=== PATIENT | female | born 1935 | race Caucasian/White ===

== ENCOUNTER 2016-05-17 17:27 | Inpatient (IN) ==
--- NOTE | 2016-05-17 17:35 | Emergency Department Note ---
Disposition Clinical Impression: Pneumonia Disposition: Admitted As Inpatient Condition: Fair Referrals: Henri Thomas MD [Primary Care Provider] - Forms: Work/School Release, ED Satisfaction Letter Time of Disposition: 19:40 (guera obsv) Altered Mental Status HPI - General Chief Complaint: ED General Medical Stated Complaint: poor intake, nausea Time Seen by Provider: 05/17/16 17:45 Source: patient Mode of arrival: ambulatory Limitations: no limitations Nursing Notes Reviewed: Yes Vital Signs Reviewed: Yes - History of Present Illness HPI Narrative: H and sent in from the group home with an alteration of her mental status apparently lab work was done after she was started on doxycycline yesterday showing she has had a sodium of 132 patient's eyes are closed well on the bed patient is on tactile stimulation but very slow to answer questions recent surgery on 04 27 16 unable to elicit is otherwise at this time except for decreased mental status complaint: altered mental status Onset (ago): Just [employer] Timing confirmed by: caregiver Pain Severity: none Consistency of Symptoms: waxing and waning, getting worse Context: unknown Associated symptoms: Reports: denies other symptoms (Per caregivers with history being noted to also include alteration of mental status only complaint) . Denies: chest pain, cough, diaphoresis, fever, chills, headaches, loss of appetite, malaise, nausea/vomiting, rash, seizure, shortness of breath, syncope , weakness, foul smelling urine, difficulty walking, diarrhea, incontinence Treatments prior to arrival: other (blood work) - Related Data Home Medications Medication Instructions Recorded Confirmed Amiodarone [Cordarone] 200 mg PO BID 12/09/14 05/17/16 Atorvastatin [Lipitor] 40 mg PO HS 12/09/14 05/17/16 Duloxetine HCl [Cymbalta] 60 mg PO DAILY 12/09/14 05/17/16 Pantoprazole Sodium [Protonix] 40 mg PO DAILY 12/09/14 05/17/16 Amlodipine [Norvasc] 2.5 mg PO DAILY 01/16/15 05/17/16 Apixaban [Eliquis] 5 mg PO BID 01/16/15 05/17/16 Ascorbic Acid [Vitamin C] 500 mg PO BID 01/16/15 05/17/16 Aspirin 81 mg PO DAILY 01/16/15 05/17/16 Celecoxib [Celebrex] 200 mg PO DAILY 01/16/15 05/17/16 Cetirizine HCl [Zyrtec] 10 mg PO DAILY 01/16/15 05/17/16 Cholecalciferol (Vitamin D3) 5,000 unit PO DAILY 01/16/15 05/17/16 [Vitamin D3] Cyanocobalamin (Vitamin B-12) 1,000 mg PO DAILY 01/16/15 05/17/16 [Vitamin B12] Diltiazem CD (24hr) [Cardizem CD] 360 mg PO DAILY 01/16/15 05/17/16 Docusate [Colace] 100 mg PO DAILY 01/16/15 05/17/16 Ferrous Sulfate 325 mg PO DAILY 01/16/15 05/17/16 Furosemide [Lasix] 20 mg PO DAILY 01/16/15 05/17/16 Losartan [Cozaar] 50 mg PO BID 01/16/15 05/17/16 Oxybutynin [Ditropan] 5 mg PO DAILY 01/16/15 05/17/16 Potassium Chloride 20 meq PO DAILY 01/16/15 05/17/16 Levothyroxine [Synthroid] 50 mcg PO DAILY 04/25/16 05/17/16 Diazepam [Valium] 2 mg PO BID 04/26/16 05/17/16 Metoprolol XL (24 HR) Succ [Toprol 100 mg PO DAILY 04/26/16 05/17/16 Xl] Doxycycline 100 mg PO BID 05/17/16 05/17/16 Previous Rx's Medication Instructions Recorded Ondansetron ODT [Zofran ODT] 4 mg SL Q6HR PRN #15 tab.rapdis 04/29/16 Allergies Allergy/AdvReac Type Severity Reaction Status Date / Time ciprofloxacin [From Cipro] Allergy Intermediate Hives Verified 11/20/15 07:35 Sulfa (Sulfonamide Allergy Intermediate Hives Verified 11/20/15 07:35 Antibiotics) amlodipine Allergy Rash Verified 11/26/15 09:04 benazepril Allergy See Verified 11/20/15 07:35 Comments trimethoprim Allergy Rash Verified 11/20/15 07:35 Limitations: ROS unobtainable due to patients medical condition Past Medical History - Past Medical History Attestation: Yes The following information was validated with the patient. Source: patient, old records reviewed, nursing notes reviewed Medical history: Reports: arthritis, atrial fibrillation, COPD, coronary artery disease, DVT, diabetes, hyperlipidemia, hypertension, migraine, myocardial infarction, thyroid disease Surgical history: Reports: angioplasty/stent, appendectomy, cataract, coronary bypass (CABG), hysterectomy, orthopedic, other (spine surgery with instrumentation), pacemaker/AICD, other Psychiatric history: Reports: anxiety, depression STONE SETTER history: Reports: no STONE SETTER history - Social History Smoking Status: Former smoker Smokeless Tobacco Status: No Alcohol use: Reports: none Drug use: Reports: none Physical Exam - General Limitations: altered mental status, age General appearance: in no apparent distress, lethargic - Head Head exam: atraumatic, normocephalic, normal inspection - Eye Eye exam: Present: normal appearance, PERRL, EOMI - ENT ENT exam: normal exam, normal oropharynx, mucous membranes moist, normal external ear exam - Neck Neck exam: Present: normal inspection, full ROM, trachea midline - Chest Chest inspection: Present: normal inspection, symmetric chest wall rise - Respiratory Respiratory exam: Present: wheezes, prolonged expiratory phase, other (crackles) - Cardiovascular Cardiovascular exam: Present: regular rate, normal rhythm, normal heart sounds - Abdominal Exam Abdominal exam: Present: soft, Non-Tender, normal bowel sounds. Absent: mass, pulsatile mass - Extremities Exam Extremities exam: Present: normal inspection, normal capillary refill. Absent: pedal edema - Expanded Upper Extremity Exam Shoulder exam: Present: normal inspection Arm exam: Present: normal inspection Elbow exam: Present: normal inspection Forearm/Wrist exam: Present: normal inspection Hand exam: Present: normal inspection Neurosensory exam: Normal: radial nerve, ulnar nerve, median nerve Vascular exam: Normal: capillary refill, radial pulse, ulnar pulse - Expanded Lower Extremity Exam Hip/Pelvis exam: Present: normal inspection Upper leg exam: Present: normal inspection Knee exam: Present: normal inspection Lower leg exam: Present: normal inspection Ankle exam: Present: normal inspection Foot/toe exam: Present: normal inspection Neurovascular/Tendon exam: Present: normal capillary refill, normal fine/light touch Gait: not tested/not observed - Back Exam Back exam: Present: normal inspection - Neurological Exam Neurological exam: Present: other (lethargic) - Psychiatric Psychiatric exam: Present: flat affect - Skin Skin exam: Present: warm, dry, intact, normal color Course Course Narrative: immediately seen and examined laboratory data obtained awaiting results at this time - Reevaluation(s) Reevaluation #1: Spoke with family about test results and as a result patient will be started on anabolic seen in emergency room I have advised him though that this time her condition is fair to guarded because of her recent hip surgery and her being minimally active and this does increase her risk for having complications postsurgery they appear to be understanding of this admitted spoke with Dr. Nunez agrees Vital Signs Temperature 99 F 05/17/16 17:32 Pulse Rate 72 05/17/16 17:32 Respiratory Rate 22 05/17/16 17:32 Blood Pressure 144/69 05/17/16 17:32 O2 Sat by Pulse Oximetry 97 05/17/16 17:32 Temperature 99 F 05/17/16 19:01 Pulse Rate 60 05/17/16 19:01 Respiratory Rate 22 05/17/16 19:01 Blood Pressure 133/64 05/17/16 19:01 O2 Sat by Pulse Oximetry 94 L 05/17/16 19:01 Oxygen Delivery Oxygen Delivery Non Rebreather Mask Altered Mental Status - Differential Diagnosis Likely: altered mental status, delirium, dementia, hypoglycemia, hyponatremia - Medical Records Medical records reviewed: Yes I reviewed the patient's medical records. - Lab Data Lab results reviewed: Yes I reviewed the patient's lab results. Result diagrams: 05/17/16 17:50 05/17/16 17:50 Lab Results 05/17/16 05/17/16 05/17/16 Range/Units 17:50 17:50 17:50 WBC 10.4 (4.3-11.1) K/mcL RBC 3.43 L (3.82-4.97) M/mcL Hgb 10.7 L (11.5-15.4) g/dL Hct 32.7 L (35.3-44.9) % MCV 95.3 (83.0-100.0) fL MCH 31.2 (28.0-33.3) pg MCHC 32.7 (31.6-35.5) g/dL RDW 16.5 H (11.5-14.5) % Plt Count 256 (140-400) K/mcL MPV 10.6 (9.4-12.4) fL Immature Gran % 1.2 (0-4) % Seg Neutrophils % 85.7 % Lymphocytes % 8.4 % Monocytes % 4.1 % Eosinophils % 0.3 % Basophils % 0.3 % Neutrophils # 8.9 (1.6-8.9) K/mcL Lymphocytes # 0.9 (0.6-4.6) K/mcL Monocytes # 0.4 (0.0-1.3) K/mcL Eosinophils # 0.0 (0.0-0.6) K/mcL Basophils # 0.0 (0.0-0.2) K/mcL PT 18.0 H (9.4-12.1) Seconds INR 1.6 APTT 31.8 (26.0-36.0) Seconds VBG Lactic Acid (0.5-2.2) mmol/L Sodium 135 L (136-145) mEq/L Potassium 4.5 (3.5-4.5) mEq/L Chloride 102 (98-109) mEq/L Carbon Dioxide 24 (19-29) mEq/L BUN 23 H D (7-20) mg/dL Creatinine 0.67 (0.57-1.11) mg/dL Est GFR ( Amer) > 60 (> 60) Est GFR (Non-Af Amer) > 60 (> 60) BUN/Creatinine Ratio 34 H (6-26) Glucose 103 H (70-99) mg/dL Calculated Osmolality 284 (280-300) Calcium 8.3 L (8.6-10.8) mg/dL Total Bilirubin 1.2 (0.2-1.2) mg/dL AST 147 H (5-34) Units/L ALT 130 H (0-55) Units/L Alkaline Phosphatase 133 H (38-126) Units/L Troponin I (0-0.03) ng/mL B-Natriuretic Peptide (0-100) pg/mL Serum Total Protein 5.4 L (6.0-8.3) g/dL Albumin 2.4 L (3.5-5.0) g/dL Globulin 3.0 (2.4-3.5) g/dL Albumin/Globulin Ratio 0.8 L (1.1-2.2) TSH (0.350-4.840) mcIU/mL Salicylates < 5.0 L (15-30) mg/dL 05/17/16 05/17/16 05/17/16 Range/Units 17:50 17:50 17:50 WBC (4.3-11.1) K/mcL RBC (3.82-4.97) M/mcL Hgb (11.5-15.4) g/dL Hct (35.3-44.9) % MCV (83.0-100.0) fL MCH (28.0-33.3) pg MCHC (31.6-35.5) g/dL RDW (11.5-14.5) % Plt Count (140-400) K/mcL MPV (9.4-12.4) fL Immature Gran % (0-4) % Seg Neutrophils % % Lymphocytes % % Monocytes % % Eosinophils % % Basophils % % Neutrophils # (1.6-8.9) K/mcL Lymphocytes # (0.6-4.6) K/mcL Monocytes # (0.0-1.3) K/mcL Eosinophils # (0.0-0.6) K/mcL Basophils # (0.0-0.2) K/mcL PT (9.4-12.1) Seconds INR APTT (26.0-36.0) Seconds VBG Lactic Acid 1.0 (0.5-2.2) mmol/L Sodium (136-145) mEq/L Potassium (3.5-4.5) mEq/L Chloride (98-109) mEq/L Carbon Dioxide (19-29) mEq/L BUN (7-20) mg/dL Creatinine (0.57-1.11) mg/dL Est GFR ( Amer) (> 60) Est GFR (Non-Af Amer) (> 60) BUN/Creatinine Ratio (6-26) Glucose (70-99) mg/dL Calculated Osmolality (280-300) Calcium (8.6-10.8) mg/dL Total Bilirubin (0.2-1.2) mg/dL AST (5-34) Units/L ALT (0-55) Units/L Alkaline Phosphatase (38-126) Units/L Troponin I 0.03 (0-0.03) ng/mL B-Natriuretic Peptide 185 H (0-100) pg/mL Serum Total Protein (6.0-8.3) g/dL Albumin (3.5-5.0) g/dL Globulin (2.4-3.5) g/dL Albumin/Globulin Ratio (1.1-2.2) TSH (0.350-4.840) mcIU/mL Salicylates (15-30) mg/dL 05/17/16 Range/Units 17:50 WBC (4.3-11.1) K/mcL RBC (3.82-4.97) M/mcL Hgb (11.5-15.4) g/dL Hct (35.3-44.9) % MCV (83.0-100.0) fL MCH (28.0-33.3) pg MCHC (31.6-35.5) g/dL RDW (11.5-14.5) % Plt Count (140-400) K/mcL MPV (9.4-12.4) fL Immature Gran % (0-4) % Seg Neutrophils % % Lymphocytes % % Monocytes % % Eosinophils % % Basophils % % Neutrophils # (1.6-8.9) K/mcL Lymphocytes # (0.6-4.6) K/mcL Monocytes # (0.0-1.3) K/mcL Eosinophils # (0.0-0.6) K/mcL Basophils # (0.0-0.2) K/mcL PT (9.4-12.1) Seconds INR APTT (26.0-36.0) Seconds VBG Lactic Acid (0.5-2.2) mmol/L Sodium (136-145) mEq/L Potassium (3.5-4.5) mEq/L Chloride (98-109) mEq/L Carbon Dioxide (19-29) mEq/L BUN (7-20) mg/dL Creatinine (0.57-1.11) mg/dL Est GFR ( Amer) (> 60) Est GFR (Non-Af Amer) (> 60) BUN/Creatinine Ratio (6-26) Glucose (70-99) mg/dL Calculated Osmolality (280-300) Calcium (8.6-10.8) mg/dL Total Bilirubin (0.2-1.2) mg/dL AST (5-34) Units/L ALT (0-55) Units/L Alkaline Phosphatase (38-126) Units/L Troponin I (0-0.03) ng/mL B-Natriuretic Peptide (0-100) pg/mL Serum Total Protein (6.0-8.3) g/dL Albumin (3.5-5.0) g/dL Globulin (2.4-3.5) g/dL Albumin/Globulin Ratio (1.1-2.2) TSH 2.595 (0.350-4.840) mcIU/mL Salicylates (15-30) mg/dL - Radiology Data Radiology results reviewed: Yes I reviewed the patient's radiology results. - EKG Data EKG attestation: Yes I reviewed and interpreted this EKG. EKG results narrative: Rhythm Paced Heart Rate 69 [place] 141 QRS 201 QT 502 Axes -57 TPA Checklist - LKW: 3-4.5 hrs Add. Contraindications Patient/family understanding: The patient/family members have been counseled and understood the risk, benefit , and alternatives of treatment. Critical Care Time Critical Care Time: No
[2016-05-17 18:04] LABS: Basophils % 0.3 %; Eosinophils % 0.3 %; Hematocrit 32.7 % (35.3-44.9); Hemoglobin 10.7 g/dL (11.5-15.4); Immature Granulocytes % 1.2 % (0-4); Lymphocytes # 0.9 K/mcL (0.6-4.6); Lymphocytes % 8.4 %; Mean Corpuscular HGB Conc 32.7 g/dL (31.6-35.5); Mean Corpuscular Hemoglobin 31.2 pg (28.0-33.3); Mean Corpuscular Volume 95.3 fL (83.0-100.0); Mean Platelet Volume 10.6 fL (9.4-12.4); Monocytes # 0.4 K/mcL (0.0-1.3); Monocytes % 4.1 %; Neutrophils # 8.9 K/mcL (1.6-8.9); Platelet Count 256 K/mcL (140-400); Red Blood Count 3.43 M/mcL (3.82-4.97); Red Cell Distribution Width 16.5 % (11.5-14.5); Segmented Neutrophils % 85.7 %
[2016-05-17 18:09] LABS: INR 1.6
[2016-05-17 18:20] LABS: Activated Partial Thrombo Time 31.8 Seconds (26.0-36.0); Alanine Aminotransferase 130 Units/L (0-55); Albumin 2.4 g/dL (3.5-5.0); Albumin/Globulin Ratio 0.8 (1.1-2.2); Alkaline Phosphatase 133 Units/L (38-126); Aspartate Amino Transferase 147 Units/L (5-34); BUN/Creatinine Ratio 34 (6-26); Blood Urea Nitrogen 23 mg/dL (7-20); Calcium 8.3 mg/dL (8.6-10.8); Carbon Dioxide 24 mEq/L (19-29); Chloride 102 mEq/L (98-109); Glucose 103 mg/dL (70-99); Osmolality,Calculated 284 (280-300); Potassium 4.5 mEq/L (3.5-4.5); Sodium 135 mEq/L (136-145); Total Protein 5.4 g/dL (6.0-8.3); eGFR For African Americans > 60 (> 60); eGFR For Non-African Americans > 60 (> 60)
[2016-05-17 18:21] LABS: Salicylate < 5.0 mg/dL (15-30)
[2016-05-17 18:22] LABS: Bilirubin,Total 1.2 mg/dL (0.2-1.2)
[2016-05-17] MEDS ORDERED: CefTRIAXone 1,000 MG in D5% in Water (Mini-Bag+) 100 ML IVPB ONE (19:28)
[2016-05-17] MEDS ORDERED: 0.9 % Sodium Chloride 1,000 ML IVC SCH (19:30)
[2016-05-17] MEDS ORDERED: Ondansetron ODT 4 MG TAB.RAPDIS SL PRN (21:17)
[2016-05-17] MEDS ORDERED: Naloxone 0.4 MG/ML INJ IVP PRN (21:17)
[2016-05-17] MEDS: 0.9 % Sodium Chloride 1,000 ML IVC SCH (21:40)
[2016-05-17] MEDS: CefTRIAXone 1,000 MG in D5% in Water (Mini-Bag+) 100 ML IVPB SCH (21:44)
[2016-05-17] MEDS: Azithromycin 500 MG in D5% in Water 250 ML IVPB SCH (23:10)
[2016-05-17] MEDS: *HR* Amiodarone 200 MG TABLET PO SCH (23:14)
[2016-05-17] MEDS: Ascorbic Acid 500 MG TABLET PO SCH (23:14)
[2016-05-17] MEDS: APIXABAN 5 MG TABLET PO SCH (23:17)
[2016-05-18 08:33] LABS: Basophils % 0.1 %; Eosinophils # 0.1 K/mcL (0.0-0.6); Eosinophils % 0.5 %; Hematocrit 30.7 % (35.3-44.9); Hemoglobin 10.1 g/dL (11.5-15.4); Immature Granulocytes % 0.7 % (0-4); Lymphocytes # 0.9 K/mcL (0.6-4.6); Lymphocytes % 8.4 %; Mean Corpuscular HGB Conc 32.9 g/dL (31.6-35.5); Mean Corpuscular Hemoglobin 31.5 pg (28.0-33.3); Mean Corpuscular Volume 95.6 fL (83.0-100.0); Mean Platelet Volume 10.4 fL (9.4-12.4); Monocytes # 0.5 K/mcL (0.0-1.3); Monocytes % 4.3 %; Neutrophils # 9.6 K/mcL (1.6-8.9); Platelet Count 226 K/mcL (140-400); Red Blood Count 3.21 M/mcL (3.82-4.97); Red Cell Distribution Width 16.5 % (11.5-14.5)
[2016-05-18 08:46] LABS: BUN/Creatinine Ratio 38 (6-26); Blood Urea Nitrogen 23 mg/dL (7-20); Calcium 7.9 mg/dL (8.6-10.8); Carbon Dioxide 24 mEq/L (19-29); Chloride 103 mEq/L (98-109); Glucose 84 mg/dL (70-99); Osmolality,Calculated 285 (280-300); Potassium 4.1 mEq/L (3.5-4.5); Sodium 136 mEq/L (136-145); eGFR For African Americans > 60 (> 60); eGFR For Non-African Americans > 60 (> 60)
[2016-05-18] MEDS ORDERED: Furosemide 20 MG TABLET PO SCH (09:00)
[2016-05-18] MEDS ORDERED: Celecoxib 200 MG CAPSULE PO SCH (09:00)
[2016-05-18] MEDS ORDERED: Loratadine 10 MG TABLET PO SCH (09:00)
[2016-05-18] MEDS ORDERED: Cyanocobalamin (B-12) 1,000 MCG TABLET PO SCH (09:00)
[2016-05-18] MEDS: Diltiazem CD (24hr) 180 MG CAPSULE PO SCH (09:58)
[2016-05-18] MEDS: Aspirin 81 MG TAB.CHEW PO SCH (09:59)
[2016-05-18] MEDS: Metoprolol XL (24 HR) Succ 50 MG TAB.ER.24H PO SCH (10:01)
[2016-05-18] MEDS: *HR* Amiodarone 200 MG TABLET PO SCH ×2 (10:02→23:08)
[2016-05-18] MEDS: APIXABAN 5 MG TABLET PO SCH ×2 (10:03→23:09)
[2016-05-18] MEDS: 0.9 % Sodium Chloride 1,000 ML IVC SCH ×2 (10:04→14:09)
--- NOTE | 2016-05-18 12:12 | Internal Med History&Physical ---
Date of Encounter: 05/18/16 Time of Encounter: 11:30 Assessment and Plan (1) Pneumonia Current visit: Yes Status: Acute She has been started on Rocephin and Zithromax. I will add lactobacillus. Qualifiers: Pneumonia type: due to unspecified organism Laterality: left Lung location: lower lobe of lung Qualified Code(s): J18.9 - Pneumonia, unspecified organism (2) Elevated LFTs Current visit: Yes Status: Acute There has been a rise since her labs in April 2016. Repeat labs as needed. (3) Anemia Current visit: Yes Status: Acute Will order anemia testing in a.m. Qualifiers: Anemia type: unspecified type Qualified Code(s): D64.9 - Anemia, unspecified (4) Afib Current visit: No Status: Chronic Continue Eliquis Qualifiers: Atrial fibrillation type: unspecified Qualified Code(s): I48.91 - Unspecified atrial fibrillation Internal Medicine - H&P: HPI Chief complaint: Confusion Admitted From: Long-term Nursing Facility Plans for Post Hospital Care: Transfer [facility] History of present illness: Ms. Henry is a 80 year old female who was sent to emergency room after the long term after staff reported she had altered mental status. Evaluation showed probable left basilar pneumonia. She was admitted to [facility] floor for ongoing care needs. She is a fair historian at best. She states she smoked from age [age] never exceeding 1 pack per day. She states she does wear oxygen at the long term. She denies known chronic lung disease. Review of available records show her most recent chest CT was 12/09/2013 and showed no evidence of malignancy. Past Med Surg Social Fam HX - Past Medical History Medical history: arthritis, atrial fibrillation, COPD, coronary artery disease, DVT, diabetes, hyperlipidemia, hypertension, migraine, myocardial infarction, thyroid disease Psychiatric history: anxiety, depression - Past Surgical History Surgical History: angioplasty/stent, appendectomy, cataract, coronary bypass ( CABG), hysterectomy, orthopedic, other, pacemaker/AICD, other - Social History Smoking Status: Former smoker Smokeless Tobacco Status: No Alcohol use: none Drug use: none - Family History Mother Living Status: Hx Family Cancer: Yes (breast) Father Living Status: Hx Family Cardiac Disorders: Yes (CHF at age 55 due to [place]) Brother Living Status: Hx Family Cardiac Disorders: Yes ( at age 39 due to [place]) Son Living Status: Hx Family Cardiac Disorders: Yes ([place]) Internal Medicine - H&P: Meds Amiodarone [Cordarone] 200 mg PO BID 12/09/14 [History] Atorvastatin [Lipitor] 40 mg PO HS 12/09/14 [History] Duloxetine HCl [Cymbalta] 60 mg PO DAILY 12/09/14 [History] Pantoprazole Sodium [Protonix] 40 mg PO DAILY 12/09/14 [History] Amlodipine [Norvasc] 2.5 mg PO DAILY 01/16/15 [History] Apixaban [Eliquis] 5 mg PO BID 01/16/15 [History] Ascorbic Acid [Vitamin C] 500 mg PO BID 01/16/15 [History] Aspirin 81 mg PO DAILY 01/16/15 [History] Celecoxib [Celebrex] 200 mg PO DAILY 01/16/15 [History] Cetirizine HCl [Zyrtec] 10 mg PO DAILY 01/16/15 [History] Cholecalciferol (Vitamin D3) [Vitamin D3] 5,000 unit PO DAILY 01/16/15 [History] Cyanocobalamin (Vitamin B-12) [Vitamin B12] 1,000 mg PO DAILY 01/16/15 [History] Diltiazem CD (24hr) [Cardizem CD] 360 mg PO DAILY 01/16/15 [History] Docusate [Colace] 100 mg PO DAILY 01/16/15 [History] Ferrous Sulfate 325 mg PO DAILY 01/16/15 [History] Furosemide [Lasix] 20 mg PO DAILY 01/16/15 [History] Losartan [Cozaar] 50 mg PO BID 01/16/15 [History] Oxybutynin [Ditropan] 5 mg PO DAILY 01/16/15 [History] Potassium Chloride 20 meq PO DAILY 01/16/15 [History] Levothyroxine [Synthroid] 50 mcg PO DAILY 04/25/16 [History] Diazepam [Valium] 2 mg PO BID 04/26/16 [History] Metoprolol XL (24 HR) Succ [Toprol Xl] 100 mg PO DAILY 04/26/16 [History] Ondansetron ODT [Zofran ODT] 4 mg SL Q6HR PRN #15 tab.rapdis 04/29/16 [Rx] Doxycycline 100 mg PO BID 05/17/16 [History] Allergies ciprofloxacin [From Cipro] Allergy (Intermediate, Verified 11/20/15 07:35) Hives Sulfa (Sulfonamide Antibiotics) Allergy (Intermediate, Verified 11/20/15 07:35) Hives benazepril Allergy (Verified 11/20/15 07:35) See Comments trimethoprim Allergy (Verified 11/20/15 07:35) Rash All Systems PM: A 10-system review of systems was performed and is negative for pertinent findings except as documented above in the HPI. Review of systems: General: Her weight has increased from 63.503 kg on 04/26/2016 to present weight of 69.989 kg. Cardiovascular: She has history of hypertension and known ASHD status post [place] x2. The dates of the heart attacks are uncertain. She has had 2 vessel CABG and reports 2 stents have been placed. She has had a pacemaker placed. She reports chronic atrial fibrillation and history of DVT. Respiratory: As per history of present illness. GI: She denies disorders of her liver gallbladder or exocrine pancreas. Medication lists reports Protonix use : She has had history of overactive bladder. She has had hysterectomy. She denies other disorders of her kidney or bladder Neurologic: CT scan emergency room showed no acute intracranial abnormality. 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 She denies seizures. Endocrine: She denies diabetes but has hyperlipidemia and hypothyroidism Hematology/oncology: She denies blood disord disorders or internal malignancies. She had anemia on emergency room blood work Psychiatric: She has a diagnosis of depression but denies other mental health issues Musk skeletal: She has DJD. She had right hip fracture repair surgery April 2016 and she has had cervical fusion in the past. She has a spinal stimulator in place for chronic low back pain. - Constitutional Vitals: Temp Pulse Resp BP Pulse Ox 98.6 F 60 28 151/71 93 L 05/18/16 11:06 05/18/16 11:06 05/18/16 11:06 05/18/16 11:06 05/18/16 11:06 Exam: Gen.: She is a well-developed well-nourished female who appears in mild respiratory distress HEENT: Head is atraumatic and normocephalic. Eyes: EOMI. There is no scleral icterus. Mouth: Mucosa is moist. Neck: Supple and nontender. There is no thyromegaly or adenopathy noted. Heart: Regular without murmurs gallops or ectopics. Lungs: She has scattered rhonchi and prolonged expiratory phase diffusely. No inspiratory crackles are heard. Chest: She has a pacemaker in the left upper chest. Abdomen: She has a well-healed lower midline abdominal scar. No masses or guarding are noted. Bowel sounds are present. Extremities: She has healing incisions in the right hip area from April 2016 surgery. She has 1-2+ edema of the dorsum of the feet and lower anterior shins bilaterally. She has DJD changes of her hands and feet. Neurologic: Mental status: She is minimally talkative and a fair historian at best. Cranial nerves: Smile is symmetric. Forehead wrinkles bilaterally. Tongue protrudes midline. EOMI. Motor: There is no pronator drift. Cerebellar : Finger to nose is marginally accurate with the right hand and not accurate with the left hand. Skin: Warm and dry. Internal Med - H&P Results - Labs CBC & Chem 7: 05/18/16 08:26 05/18/16 08:26 Labs: Short CBC 05/18/16 Range/Units 08:26 WBC 11.1 (4.3-11.1) K/mcL Hgb 10.1 L (11.5-15.4) g/dL Hct 30.7 L (35.3-44.9) % Plt Count 226 (140-400) K/mcL Neutrophils # 9.6 H (1.6-8.9) K/mcL BMP 05/18/16 08:26 Sodium 136 Potassium 4.1 Chloride 103 Carbon Dioxide 24 BUN 23 H Creatinine 0.60 Glucose 84 Calcium 7.9 L
[2016-05-18] MEDS: Ascorbic Acid 500 MG TABLET PO SCH ×2 (12:26→23:08)
[2016-05-18] MEDS: Cholecalciferol (D-3) 1,000 UNIT TABLET PO SCH (12:26)
[2016-05-18] MEDS: CefTRIAXone 1,000 MG in D5% in Water (Mini-Bag+) 100 ML IVPB SCH (23:03)
[2016-05-18] MEDS: Lactobacillus 1 EACH CAP.SPRINK PO SCH (23:09)
[2016-05-19] MEDS: Azithromycin 500 MG in D5% in Water 250 ML IVPB SCH ×2 (00:14→21:29)
[2016-05-19] MEDS: 0.9 % Sodium Chloride 1,000 ML IVC SCH (06:44)
[2016-05-19] MEDS ORDERED: Celecoxib 100 MG CAPSULE PO SCH (09:00)
--- NOTE | 2016-05-19 09:19 | Internal Med Progress Note ---
Date of Encounter: 05/19/16 Time of Encounter: 09:05 - Assessment and plan (1) Pneumonia Current Visit: Yes Status: Acute Assessment and plan: May 19. Continue Rocephin and Zithromax with lactobacillus. Qualifiers: Pneumonia type: due to unspecified organism Laterality: left Lung location: lower lobe of lung Qualified Code(s): J18.9 - Pneumonia, unspecified organism (2) Elevated LFTs Current Visit: Yes Status: Acute Assessment and plan: May 19. Will recheck labs in a.m. (3) Anemia Current Visit: Yes Status: Acute Assessment and plan: May 19. We will recheck labs in a.m. Qualifiers: Anemia type: unspecified type Qualified Code(s): D64.9 - Anemia, unspecified (4) Afib Current Visit: No Status: Chronic Assessment and plan: May 19. Continue Eliquis Qualifiers: Atrial fibrillation type: unspecified Qualified Code(s): I48.91 - Unspecified atrial fibrillation - Subjective Interval history: May 19. She has no new complaints. She is lethargic but nods her head in answer to a few questions. - Constitutional Vitals: Temp Pulse Resp BP Pulse Ox 98.4 F 66 20 144/81 91 L 05/19/16 07:11 05/19/16 07:11 05/19/16 07:11 05/19/16 07:11 05/19/16 07:11 Exam: She appears in no acute distress. Her respirations do not appear labored. I reviewed her medications and lab results. Internal Medicine: Result - Labs CBC & Chem 7: 05/18/16 08:26 05/18/16 08:26 - ABG Interpretation ABG results: PT/INR, D-dimer PT 18.0 Seconds (9.4-12.1) H 05/17/16 17:50 Consult Discharge Plan - Plan Referrals: Henri Thomas MD [Primary Care Provider] - 1 week
--- NOTE | 2016-05-19 13:36 | Electrocardiograph Report ---
[facility] Test Date: 2016-05-17 Pat Name: Nahed Henry Department: 9201 Room: [facility] Gender: F Director Of Oncology: FAHEEM : 1935 Requested By: Nela Medina Order Number: [id number] Reading MD: Yong Sanchez DO Measurements Intervals Kane Rate: 69 P: 264 OK: 141 QRS: -57 QRSD: 201 T: 85 QT: 502 QTc: 521 Interpretive Statements AV sequential pacing Electronically Signed On 05-19-16 13:35:20 EST by Yong Sanchez DO
[2016-05-19] MEDS: Aspirin 81 MG TAB.CHEW PO SCH (15:39)
[2016-05-19] MEDS: *HR* Amiodarone 200 MG TABLET PO SCH ×2 (15:40→21:32)
[2016-05-19] MEDS: Metoprolol XL (24 HR) Succ 50 MG TAB.ER.24H PO SCH (15:41)
[2016-05-19] MEDS: Furosemide 20 MG TABLET PO SCH (15:41)
[2016-05-19] MEDS: Diltiazem CD (24hr) 180 MG CAPSULE PO SCH (15:41)
[2016-05-19] MEDS: APIXABAN 5 MG TABLET PO SCH ×2 (19:24→21:32)
[2016-05-19] MEDS: Lactobacillus 1 EACH CAP.SPRINK PO SCH ×2 (19:24→21:32)
[2016-05-19] MEDS: Cholecalciferol (D-3) 1,000 UNIT TABLET PO SCH (19:25)
[2016-05-19] MEDS: Ascorbic Acid 500 MG TABLET PO SCH ×2 (19:25→21:32)
[2016-05-19] MEDS: Cyanocobalamin (B-12) 1,000 MCG TABLET PO SCH (19:25)
[2016-05-19] MEDS: CefTRIAXone 1,000 MG in D5% in Water (Mini-Bag+) 100 ML IVPB SCH (21:31)
[2016-05-20] MEDS ORDERED: Furosemide 20 MG/2 ML VIAL IVP ONE ×2 (00:18)
[2016-05-20 04:17] LABS: Basophils % 0.2 %; Eosinophils # 0.2 K/mcL (0.0-0.6); Eosinophils % 1.3 %; Hematocrit 28.1 % (35.3-44.9); Hemoglobin 9.4 g/dL (11.5-15.4); Lymphocytes # 1.3 K/mcL (0.6-4.6); Mean Corpuscular HGB Conc 33.5 g/dL (31.6-35.5); Mean Corpuscular Hemoglobin 31.4 pg (28.0-33.3); Mean Platelet Volume 10.4 fL (9.4-12.4); Monocytes % 8.8 %; Platelet Count 255 K/mcL (140-400); Red Blood Count 2.99 M/mcL (3.82-4.97); Red Cell Distribution Width 16.5 % (11.5-14.5); Segmented Neutrophils % 77.7 %
[2016-05-20 04:37] LABS: Alanine Aminotransferase 80 Units/L (0-55); Albumin 2.2 g/dL (3.5-5.0); Albumin/Globulin Ratio 0.8 (1.1-2.2); Alkaline Phosphatase 100 Units/L (38-126); Aspartate Amino Transferase 89 Units/L (5-34); BUN/Creatinine Ratio 22 (6-26); Bilirubin,Total 1.1 mg/dL (0.2-1.2); Blood Urea Nitrogen 12 mg/dL (7-20); Calcium 7.7 mg/dL (8.6-10.8); Carbon Dioxide 23 mEq/L (19-29); Chloride 104 mEq/L (98-109); Globulin 2.9 g/dL (2.4-3.5); Glucose 85 mg/dL (70-99); Osmolality,Calculated 283 (280-300); Potassium 3.5 mEq/L (3.5-4.5); Sodium 137 mEq/L (136-145); Total Protein 5.1 g/dL (6.0-8.3); eGFR For African Americans > 60 (> 60); eGFR For Non-African Americans > 60 (> 60)
[2016-05-20] MEDS: 0.9 % Sodium Chloride 1,000 ML IVC SCH (04:52)
[2016-05-20] MEDS: Cholecalciferol (D-3) 1,000 UNIT TABLET PO SCH (10:03)
[2016-05-20] MEDS: Cyanocobalamin (B-12) 1,000 MCG TABLET PO SCH (10:03)
[2016-05-20] MEDS: Furosemide 20 MG TABLET PO SCH (10:04)
[2016-05-20] MEDS: Metoprolol XL (24 HR) Succ 50 MG TAB.ER.24H PO SCH (10:04)
[2016-05-20] MEDS: *HR* Amiodarone 200 MG TABLET PO SCH ×2 (10:05→23:19)
[2016-05-20] MEDS: Lactobacillus 1 EACH CAP.SPRINK PO SCH ×2 (10:05→23:19)
[2016-05-20] MEDS: Aspirin 81 MG TAB.CHEW PO SCH (10:05)
[2016-05-20] MEDS: Diltiazem CD (24hr) 180 MG CAPSULE PO SCH (10:05)
[2016-05-20] MEDS: Ascorbic Acid 500 MG TABLET PO SCH ×2 (10:06→23:19)
[2016-05-20] MEDS: APIXABAN 5 MG TABLET PO SCH ×2 (10:07→23:19)
--- NOTE | 2016-05-20 10:14 | Internal Med Progress Note ---
Date of Encounter: 05/20/16 Time of Encounter: 10:00 - Assessment and plan (1) Pneumonia Current Visit: Yes Status: Acute Assessment and plan: May 19. Continue Rocephin and Zithromax with lactobacillus. Qualifiers: Pneumonia type: due to unspecified organism Laterality: left Lung location: lower lobe of lung Qualified Code(s): J18.9 - Pneumonia, unspecified organism (2) Elevated LFTs Current Visit: Yes Status: Acute Assessment and plan: May 19. Will recheck labs in a.m. (3) Anemia Current Visit: Yes Status: Acute Assessment and plan: May 19. We will recheck labs in a.m. May 20. Anemia testing is pending. Qualifiers: Anemia type: unspecified type Qualified Code(s): D64.9 - Anemia, unspecified (4) Afib Current Visit: No Status: Chronic Assessment and plan: May 19. Continue Eliquis Qualifiers: Atrial fibrillation type: unspecified Qualified Code(s): I48.91 - Unspecified atrial fibrillation - Subjective Interval history: May 19. She has no new complaints. She is lethargic but nods her head in answer to a few questions. May 20. She has no new complaints. She remains lethargic/obtunded. - Constitutional Vitals: Temp Pulse Resp BP Pulse Ox 98.3 F 59 32 131/55 93 L 05/20/16 07:03 05/20/16 07:03 05/20/16 07:03 05/20/16 07:03 05/20/16 07:03 Exam: She is lying in bed appears to be resting comfortably. She responds normally to voice and light touch. She has equal arm tone on passive range of motion. She does not move spontaneously. Extremities showed trace to 1+ edema of the dorsum of the feet and lower anterior shins bilaterally. Her heart is irregularly irregular. I reviewed her medications and lab results. Internal Medicine: Result - Labs CBC & Chem 7: 05/20/16 03:53 05/20/16 03:53 Labs: Short CBC 05/20/16 Range/Units 03:53 WBC 11.6 H (4.3-11.1) K/mcL Hgb 9.4 L (11.5-15.4) g/dL Hct 28.1 L (35.3-44.9) % Plt Count 255 (140-400) K/mcL Neutrophils # 9.0 H (1.6-8.9) K/mcL BMP 05/20/16 03:53 Sodium 137 Potassium 3.5 Chloride 104 Carbon Dioxide 23 BUN 12 D Creatinine 0.55 L Glucose 85 Calcium 7.7 L Liver Function 05/20/16 Range/Units 03:53 Total Bilirubin 1.1 (0.2-1.2) mg/dL AST 89 H (5-34) Units/L ALT 80 H (0-55) Units/L Alkaline Phosphatase 100 (38-126) Units/L Albumin 2.2 L (3.5-5.0) g/dL - ABG Interpretation ABG results: PT/INR, D-dimer PT 18.0 Seconds (9.4-12.1) H 05/17/16 17:50 Consult Discharge Plan - Plan Referrals: Henri Thomas MD [Primary Care Provider] - 1 week
[2016-05-20] MEDS: 0.45 % Sodium Chloride w/KCl 20 MEQ/1,000 ML MLS IVC SCH (10:37)
[2016-05-20 10:44] LABS: % Iron Saturation 13 % (15-50); Iron 23 mcg/dL (50-170); Transferrin 124 mg/dL (180-382)
[2016-05-20 11:16] LABS: Folate 7.3 ng/mL (7.0-31.4)
[2016-05-20 11:18] LABS: Vitamin B12 > 2000 pg/mL (213-816)
[2016-05-20 11:29] LABS: ABG Base Excess 2.5 mEq/L (-2.0 to 3.0); ABG HCO3 26.4 mEQ/L (21-27); ABG Oxygen Saturation 94 % (95-98); ABG PCO2 38 mmHg (35-45); ABG PH 7.46 pH Units (7.32-7.45); ABG PO2 66 mmHg (85-104); ABG TCO2 27.6 mEq/L (20-26)
[2016-05-20 11:30] LABS: Blood Gas FiO2 36 %; Blood Gas Liter Flow 4 L/MIN
[2016-05-20 11:40] LABS: Ferritin 2290 ng/ml (5-204)
[2016-05-20] MEDS: *HR* Morphine 2 MG/ML SYRINGE IVP PRN ×3 (12:44→23:24)
[2016-05-20] MEDS: Azithromycin 500 MG in D5% in Water 250 ML IVPB SCH (23:38)
[2016-05-20] MEDS: CefTRIAXone 1,000 MG in D5% in Water (Mini-Bag+) 100 ML IVPB SCH (23:38)
[2016-05-21] MEDS: 0.45 % Sodium Chloride w/KCl 20 MEQ/1,000 ML MLS IVC SCH (05:56)
[2016-05-21 07:57] LABS: Basophils % 0.1 %; Eosinophils % 0.2 %; Hematocrit 26.3 % (35.3-44.9); Hemoglobin 8.6 g/dL (11.5-15.4); Immature Granulocytes % 1.1 % (0-4); Lymphocytes # 0.7 K/mcL (0.6-4.6); Lymphocytes % 5.2 %; Mean Corpuscular HGB Conc 32.7 g/dL (31.6-35.5); Mean Corpuscular Hemoglobin 30.8 pg (28.0-33.3); Mean Corpuscular Volume 94.3 fL (83.0-100.0); Mean Platelet Volume 10.2 fL (9.4-12.4); Monocytes # 1.5 K/mcL (0.0-1.3); Monocytes % 11.2 %; Platelet Count 278 K/mcL (140-400); Red Blood Count 2.79 M/mcL (3.82-4.97); Red Cell Distribution Width 16.3 % (11.5-14.5); Segmented Neutrophils % 82.2 %
[2016-05-21 08:58] LABS: BUN/Creatinine Ratio 22 (6-26); Blood Urea Nitrogen 11 mg/dL (7-20); Calcium 7.9 mg/dL (8.6-10.8); Carbon Dioxide 24 mEq/L (19-29); Chloride 104 mEq/L (98-109); Glucose 107 mg/dL (70-99); Osmolality,Calculated 284 (280-300); Potassium 3.3 mEq/L (3.5-4.5); Sodium 137 mEq/L (136-145); eGFR For African Americans > 60 (> 60); eGFR For Non-African Americans > 60 (> 60)
--- NOTE | 2016-05-21 09:26 | Internal Med Progress Note ---
Date of Encounter: 05/21/16 Time of Encounter: 09:15 - Assessment and plan (1) Pneumonia Current Visit: Yes Status: Acute Assessment and plan: May 19. Continue Rocephin and Zithromax with lactobacillus. May 20. Her leukocytosis and left shift have worsened. I will discontinue Rocephin and Zithromax and give her Levaquin and doxycycline. Chest CT will be done. Her ABG was acceptable yesterday. Qualifiers: Pneumonia type: due to unspecified organism Laterality: left Lung location: lower lobe of lung Qualified Code(s): J18.9 - Pneumonia, unspecified organism (2) Elevated LFTs Current Visit: Yes Status: Acute Assessment and plan: May 19. Will recheck labs in a.m. May 21. LFTs were improved. Continue to monitor labs. (3) Anemia Current Visit: Yes Status: Acute Assessment and plan: May 19. We will recheck labs in a.m. May 20. Anemia testing is pending. May 21. Hemoglobin has declined further to 8.6 today. Will discontinue aspirin and Eliquis for now. Anemia testing showed no factor deficiency Qualifiers: Anemia type: unspecified type Qualified Code(s): D64.9 - Anemia, unspecified (4) Afib Current Visit: No Status: Chronic Assessment and plan: May 19. Continue Eliquis May 21. We will hold aspirin and Eliquis because of worsening anemia. Qualifiers: Atrial fibrillation type: unspecified Qualified Code(s): I48.91 - Unspecified atrial fibrillation - Subjective Interval history: May 19. She has no new complaints. She is lethargic but nods her head in answer to a few questions. May 20. She has no new complaints. She remains lethargic/obtunded. May 21. She states she feels "sick". She complains of nausea and dyspnea specifically. - Constitutional Vitals: Temp Pulse Resp BP Pulse Ox 98.6 F 68 18 167/69 90 L 05/21/16 06:39 05/21/16 06:39 05/21/16 06:39 05/21/16 06:39 05/21/16 06:39 Exam: She is dyspneic. She has scattered rhonchi bilaterally. Extremities show trace edema bilaterally. Heart tones are difficult to hear. I reviewed her medications and lab results. Internal Medicine: Result - Labs CBC & Chem 7: 05/21/16 07:32 05/21/16 07:32 Labs: Short CBC 05/21/16 Range/Units 07:32 WBC 13.4 H (4.3-11.1) K/mcL Hgb 8.6 L (11.5-15.4) g/dL Hct 26.3 L (35.3-44.9) % Plt Count 278 (140-400) K/mcL Neutrophils # 11.0 H (1.6-8.9) K/mcL BMP 05/20/16 05/21/16 03:53 07:32 Sodium 137 137 Potassium 3.5 3.3 L Chloride 104 104 Carbon Dioxide 23 24 BUN 12 D 11 Creatinine 0.55 L 0.49 L Glucose 85 107 H Calcium 7.7 L 7.9 L Liver Function 05/20/16 Range/Units 03:53 Total Bilirubin 1.1 (0.2-1.2) mg/dL AST 89 H (5-34) Units/L ALT 80 H (0-55) Units/L Alkaline Phosphatase 100 (38-126) Units/L Albumin 2.2 L (3.5-5.0) g/dL - ABG Interpretation ABG results: ABG ABG pH 7.46 pH Units (7.32-7.45) H 05/20/16 11:02 ABG pCO2 38 mmHg (35-45) 05/20/16 11:02 ABG pO2 66 mmHg (85-104) L 05/20/16 11:02 ABG O2 Saturation 94 % (95-98) L 05/20/16 11:02 PT/INR, D-dimer PT 18.0 Seconds (9.4-12.1) H 05/17/16 17:50 Consult Discharge Plan - Plan Referrals: Henri Thomas MD [Primary Care Provider] - 1 week
[2016-05-21] MEDS: Doxycycline 200 MG in 0.9 % Sodium Chloride 250 ML IVPB SCH (10:51)
[2016-05-21] MEDS: Diltiazem CD (24hr) 180 MG CAPSULE PO SCH (11:14)
[2016-05-21] MEDS: *HR* Amiodarone 200 MG TABLET PO SCH ×2 (11:15→20:58)
[2016-05-21] MEDS: Furosemide 20 MG TABLET PO SCH (11:17)
[2016-05-21] MEDS: Lactobacillus 1 EACH CAP.SPRINK PO SCH ×2 (11:17→20:58)
[2016-05-21] MEDS: Metoprolol XL (24 HR) Succ 50 MG TAB.ER.24H PO SCH (11:18)
[2016-05-21] MEDS: Ascorbic Acid 500 MG TABLET PO SCH ×2 (11:18→20:59)
[2016-05-21] MEDS: Cyanocobalamin (B-12) 1,000 MCG TABLET PO SCH (11:18)
[2016-05-21] MEDS: Cholecalciferol (D-3) 1,000 UNIT TABLET PO SCH (11:18)
[2016-05-21] MEDS: Levofloxacin 500 MG/100 ML 500 MG/100 ML BAG IVPB SCH (12:14)
[2016-05-21] MEDS: *HR* Morphine 2 MG/ML SYRINGE IVP PRN ×3 (14:00→21:14)
[2016-05-22] MEDS: Doxycycline 200 MG in 0.9 % Sodium Chloride 250 ML IVPB SCH ×3 (00:45→20:32)
[2016-05-22] MEDS: *HR* Morphine 2 MG/ML SYRINGE IVP PRN ×11 (00:45→23:02)
[2016-05-22] MEDS: 0.45 % Sodium Chloride w/KCl 20 MEQ/1,000 ML MLS IVC SCH ×2 (00:49→22:59)
[2016-05-22] MEDS: Levothyroxine 25 MCG TABLET PO SCH (04:42)
[2016-05-22 05:01] LABS: Basophils % 0.2 %; Hematocrit 28.4 % (35.3-44.9); Immature Granulocytes % 2.4 % (0-4); Lymphocytes # 0.6 K/mcL (0.6-4.6); Lymphocytes % 3.1 %; Mean Corpuscular HGB Conc 31.7 g/dL (31.6-35.5); Mean Corpuscular Hemoglobin 30.7 pg (28.0-33.3); Mean Corpuscular Volume 96.9 fL (83.0-100.0); Mean Platelet Volume 9.8 fL (9.4-12.4); Monocytes # 1.9 K/mcL (0.0-1.3); Monocytes % 10.2 %; Platelet Count 357 K/mcL (140-400); Red Blood Count 2.93 M/mcL (3.82-4.97); Red Cell Distribution Width 16.6 % (11.5-14.5); Segmented Neutrophils % 84.1 %
[2016-05-22 05:19] LABS: BUN/Creatinine Ratio 17 (6-26); Blood Urea Nitrogen 10 mg/dL (7-20); Calcium 8.4 mg/dL (8.6-10.8); Carbon Dioxide 17 mEq/L (19-29); Chloride 108 mEq/L (98-109); Glucose 110 mg/dL (70-99); Osmolality,Calculated 286 (280-300); Potassium 4.2 mEq/L (3.5-4.5); Sodium 138 mEq/L (136-145); eGFR For African Americans > 60 (> 60); eGFR For Non-African Americans > 60 (> 60)
[2016-05-22] MEDS: Lactobacillus 1 EACH CAP.SPRINK PO SCH ×2 (08:38→19:41)
[2016-05-22] MEDS: *HR* Amiodarone 200 MG TABLET PO SCH ×2 (08:38→19:41)
[2016-05-22] MEDS: Diltiazem CD (24hr) 180 MG CAPSULE PO SCH (08:38)
[2016-05-22] MEDS: Ascorbic Acid 500 MG TABLET PO SCH ×2 (08:39→19:42)
[2016-05-22] MEDS: Furosemide 20 MG TABLET PO SCH (08:39)
[2016-05-22] MEDS: Metoprolol XL (24 HR) Succ 50 MG TAB.ER.24H PO SCH (08:39)
[2016-05-22] MEDS: Cholecalciferol (D-3) 1,000 UNIT TABLET PO SCH (08:40)
--- NOTE | 2016-05-22 10:30 | Internal Med Progress Note ---
Date of Encounter: 05/22/16 Time of Encounter: 10:20 - Assessment and plan (1) Pneumonia Current Visit: Yes Status: Acute Assessment and plan: May 19. Continue Rocephin and Zithromax with lactobacillus. May 20. Her leukocytosis and left shift have worsened. I will discontinue Rocephin and Zithromax and give her Levaquin and doxycycline. Chest CT will be done. Her ABG was acceptable yesterday. May 22. Continue IV Levaquin and doxycycline. Chest CT showed bilateral infiltrates. Requiring higher flow oxygen to maintain saturations. I note WBC higher today. Qualifiers: Pneumonia type: due to unspecified organism Laterality: left Lung location: lower lobe of lung Qualified Code(s): J18.9 - Pneumonia, unspecified organism (2) Elevated LFTs Current Visit: Yes Status: Acute Assessment and plan: May 19. Will recheck labs in a.m. May 21. LFTs were improved. Continue to monitor labs. May 22. Continue present management (3) Anemia Current Visit: Yes Status: Acute Assessment and plan: May 19. We will recheck labs in a.m. May 20. Anemia testing is pending. May 21. Hemoglobin has declined further to 8.6 today. Will discontinue aspirin and Eliquis for now. Anemia testing showed no factor deficiency May 22. Hemoglobin slightly improved. Continue to hold aspirin and OAC. Qualifiers: Anemia type: unspecified type Qualified Code(s): D64.9 - Anemia, unspecified (4) Afib Current Visit: No Status: Chronic Assessment and plan: May 19. Continue Eliquis May 21. We will hold aspirin and Eliquis because of worsening anemia. Qualifiers: Atrial fibrillation type: unspecified Qualified Code(s): I48.91 - Unspecified atrial fibrillation - Subjective Interval history: May 19. She has no new complaints. She is lethargic but nods her head in answer to a few questions. May 20. She has no new complaints. She remains lethargic/obtunded. May 21. She states she feels "sick". She complains of nausea and dyspnea specifically. May 22. She is wearing nonrebreather oxygen mask and makes no attempt to speak - Constitutional Vitals: Temp Pulse Resp BP Pulse Ox 99.3 F 68 36 146/59 95 05/22/16 06:58 05/22/16 06:58 05/22/16 06:58 05/22/16 06:58 05/22/16 06:58 Exam: She is in minimal respiratory distress. There are audible secretions and rhonchi without use of stethoscope. Her extremities show trace edema bilaterally in the lower legs, slightly more on the right than the left. I reviewed her medications and lab results. Internal Medicine: Result - Labs CBC & Chem 7: 05/22/16 04:00 05/22/16 04:55 Labs: Short CBC 05/22/16 Range/Units 04:00 WBC 19.0 H (4.3-11.1) K/mcL Hgb 9.0 L (11.5-15.4) g/dL Hct 28.4 L (35.3-44.9) % Plt Count 357 (140-400) K/mcL Neutrophils # 16.0 H (1.6-8.9) K/mcL BMP 05/22/16 04:55 Sodium 138 Potassium 4.2 Chloride 108 Carbon Dioxide 17 L BUN 10 Creatinine 0.58 Glucose 110 H Calcium 8.4 L - ABG Interpretation ABG results: ABG ABG pH 7.46 pH Units (7.32-7.45) H 05/20/16 11:02 ABG pCO2 38 mmHg (35-45) 05/20/16 11:02 ABG pO2 66 mmHg (85-104) L 05/20/16 11:02 ABG O2 Saturation 94 % (95-98) L 05/20/16 11:02 PT/INR, D-dimer PT 18.0 Seconds (9.4-12.1) H 05/17/16 17:50 - Impressions Impressions Chest CT 05/21/16 09:20 IMPRESSION: Small moderate bilateral pleural effusions with dependent consolidation, likely passive atelectasis. Pneumonia cannot be excluded. Patchy bilateral alveolar and interstitial airspace opacification with septal lines within the lung bases. Findings are most compatible with pulmonary edema. Pneumonia or adult respiratory distress syndrome or pneumonia could also have this appearance. Correlation is recommended. D/ / Mariya Patiño Cha, MD / Mariya Patiño Cha, MD Interpreting Provider: Mariya Patiño Cha, MD Head CT 05/21/16 11:04 IMPRESSION: No acute intracranial abnormality. Moderate cerebral atrophy appropriate for age. Large amount of chronic ischemic white matter changes also age-appropriate. No significant change from the prior study. D/ / Ruben Eisenberg MD / Ruben Eisenberg MD Interpreting Provider: Ruben Eisenberg MD Consult Discharge Plan - Plan Referrals: Henri Thomas MD [Primary Care Provider] - 1 week
[2016-05-22] MEDS: Levofloxacin 500 MG/100 ML 500 MG/100 ML BAG IVPB SCH (11:53)
[2016-05-22] MEDS: *HR* LORazepam 2 MG/ML VIAL IVP PRN (19:18)
[2016-05-23] MEDS: *HR* Morphine 2 MG/ML SYRINGE IVP PRN ×10 (01:07→23:40)
[2016-05-23] MEDS: 0.45 % Sodium Chloride w/KCl 20 MEQ/1,000 ML MLS IVC SCH ×2 (01:07→19:46)
[2016-05-23] MEDS: *HR* LORazepam 2 MG/ML VIAL IVP PRN ×7 (01:08→22:31)
[2016-05-23] MEDS: Levothyroxine 25 MCG TABLET PO SCH (05:25)
[2016-05-23 05:36] LABS: Basophils % 0.2 %; Eosinophils % 0.1 %; Hematocrit 27.2 % (35.3-44.9); Hemoglobin 8.6 g/dL (11.5-15.4); Immature Granulocytes % 1.7 % (0-4); Lymphocytes # 1.1 K/mcL (0.6-4.6); Lymphocytes % 5.7 %; Mean Corpuscular HGB Conc 31.6 g/dL (31.6-35.5); Mean Corpuscular Hemoglobin 30.6 pg (28.0-33.3); Mean Corpuscular Volume 96.8 fL (83.0-100.0); Mean Platelet Volume 10.4 fL (9.4-12.4); Monocytes # 1.8 K/mcL (0.0-1.3); Neutrophils # 16.4 K/mcL (1.6-8.9); Nucleated Red Blood Cells 0.1 /100 WBC (0); Platelet Count 413 K/mcL (140-400); Red Blood Count 2.81 M/mcL (3.82-4.97); Red Cell Distribution Width 16.5 % (11.5-14.5); Segmented Neutrophils % 83.3 %
[2016-05-23 06:03] LABS: Alanine Aminotransferase 53 Units/L (0-55); Albumin 2.1 g/dL (3.5-5.0); Albumin/Globulin Ratio 0.7 (1.1-2.2); Alkaline Phosphatase 88 Units/L (38-126); Aspartate Amino Transferase 65 Units/L (5-34); BUN/Creatinine Ratio 21 (6-26); Bilirubin,Total 1.4 mg/dL (0.2-1.2); Blood Urea Nitrogen 12 mg/dL (7-20); Calcium 8.6 mg/dL (8.6-10.8); Carbon Dioxide 24 mEq/L (19-29); Chloride 108 mEq/L (98-109); Globulin 3.2 g/dL (2.4-3.5); Glucose 95 mg/dL (70-99); Osmolality,Calculated 294 (280-300); Potassium 3.5 mEq/L (3.5-4.5); Sodium 142 mEq/L (136-145); Total Protein 5.3 g/dL (6.0-8.3); eGFR For African Americans > 60 (> 60); eGFR For Non-African Americans > 60 (> 60)
[2016-05-23] MEDS: Doxycycline 200 MG in 0.9 % Sodium Chloride 250 ML IVPB SCH (10:31)
--- NOTE | 2016-05-23 12:37 | Internal Med Progress Note ---
Date of Encounter: 05/23/16 Time of Encounter: 12:25 - Assessment and plan (1) Pneumonia Current Visit: Yes Status: Acute Assessment and plan: May 19. Continue Rocephin and Zithromax with lactobacillus. May 20. Her leukocytosis and left shift have worsened. I will discontinue Rocephin and Zithromax and give her Levaquin and doxycycline. Chest CT will be done. Her ABG was acceptable yesterday. May 22. Continue IV Levaquin and doxycycline. Chest CT showed bilateral infiltrates. Requiring higher flow oxygen to maintain saturations. I note WBC higher today. May 23. Continue present regimen. Recheck labs in a.m. Qualifiers: Pneumonia type: due to unspecified organism Laterality: left Lung location: lower lobe of lung Qualified Code(s): J18.9 - Pneumonia, unspecified organism (2) Elevated LFTs Current Visit: Yes Status: Acute Assessment and plan: May 19. Will recheck labs in a.m. May 21. LFTs were improved. Continue to monitor labs. May 22. Continue present management May 23. LFTs are further improved today. Continue present management (3) Anemia Current Visit: Yes Status: Acute Assessment and plan: May 19. We will recheck labs in a.m. May 20. Anemia testing is pending. May 21. Hemoglobin has declined further to 8.6 today. Will discontinue aspirin and Eliquis for now. Anemia testing showed no factor deficiency May 22. Hemoglobin slightly improved. Continue to hold aspirin and OAC. May 23. Hemoglobin minimally decreased to 8.6. Continue present management. Qualifiers: Anemia type: unspecified type Qualified Code(s): D64.9 - Anemia, unspecified (4) Afib Current Visit: No Status: Chronic Assessment and plan: May 19. Continue Eliquis May 21. We will hold aspirin and Eliquis because of worsening anemia. Qualifiers: Atrial fibrillation type: unspecified Qualified Code(s): I48.91 - Unspecified atrial fibrillation - Subjective Interval history: May 19. She has no new complaints. She is lethargic but nods her head in answer to a few questions. May 20. She has no new complaints. She remains lethargic/obtunded. May 21. She states she feels "sick". She complains of nausea and dyspnea specifically. [place] 12. She is wearing nonrebreather oxygen mask and makes no attempt to speak May 23. She is lying in bed wearing oxygen and makes no attempt to speak. - Constitutional Vitals: Temp Pulse Resp BP Pulse Ox 100.0 F H 72 30 154/76 93 L 05/23/16 06:35 05/23/16 06:35 05/23/16 06:35 05/23/16 06:35 05/23/16 06:35 Exam: She appears in minimal respiratory distress at present time. Her extremities show trace edema bilaterally. Her feet are warm to touch. I reviewed her medications and lab results. Internal Medicine: Result - Labs CBC & Chem 7: 05/23/16 04:31 05/23/16 04:31 Labs: Short CBC 05/23/16 Range/Units 04:31 WBC 19.7 H (4.3-11.1) K/mcL Hgb 8.6 L (11.5-15.4) g/dL Hct 27.2 L (35.3-44.9) % Plt Count 413 H (140-400) K/mcL Neutrophils # 16.4 H (1.6-8.9) K/mcL BMP 05/23/16 04:31 Sodium 142 Potassium 3.5 Chloride 108 Carbon Dioxide 24 BUN 12 Creatinine 0.57 Glucose 95 Calcium 8.6 Liver Function 05/23/16 Range/Units 04:31 Total Bilirubin 1.4 H (0.2-1.2) mg/dL AST 65 H (5-34) Units/L ALT 53 (0-55) Units/L Alkaline Phosphatase 88 (38-126) Units/L Albumin 2.1 L (3.5-5.0) g/dL - ABG Interpretation ABG results: ABG ABG pH 7.46 pH Units (7.32-7.45) H 05/20/16 11:02 ABG pCO2 38 mmHg (35-45) 05/20/16 11:02 ABG pO2 66 mmHg (85-104) L 05/20/16 11:02 ABG O2 Saturation 94 % (95-98) L 05/20/16 11:02 PT/INR, D-dimer PT 18.0 Seconds (9.4-12.1) H 05/17/16 17:50 Consult Discharge Plan - Plan Referrals: Henri Thomas MD [Primary Care Provider] - 1 week
[2016-05-23] MEDS: Levofloxacin 500 MG/100 ML 500 MG/100 ML BAG IVPB SCH (12:38)
[2016-05-23] MEDS: Furosemide 20 MG TABLET PO SCH (12:39)
[2016-05-23] MEDS: Lactobacillus 1 EACH CAP.SPRINK PO SCH ×2 (12:39→18:15)
[2016-05-23] MEDS: Diltiazem CD (24hr) 180 MG CAPSULE PO SCH (12:39)
[2016-05-23] MEDS: *HR* Amiodarone 200 MG TABLET PO SCH (12:39)
[2016-05-23] MEDS: Cholecalciferol (D-3) 1,000 UNIT TABLET PO SCH (12:40)
[2016-05-23] MEDS: Ascorbic Acid 500 MG TABLET PO SCH ×2 (12:40→18:15)
[2016-05-23] MEDS: Metoprolol XL (24 HR) Succ 50 MG TAB.ER.24H PO SCH (12:40)
[2016-05-23] MEDS ORDERED: Amiodarone 150 MG in D5% in Water 100 ML IVPB SCH (15:45)
[2016-05-23] MEDS ORDERED: Doxycycline 100 MG in 0.9 % Sodium Chloride 250 ML IVPB SCH (22:00)
[2016-05-24] MEDS: *HR* Morphine 2 MG/ML SYRINGE IVP PRN ×11 (03:53→22:22)
[2016-05-24] MEDS: *HR* LORazepam 2 MG/ML VIAL IVP PRN ×6 (03:54→23:30)
[2016-05-24 04:35] LABS: Basophils % 0.2 %; Hematocrit 28.3 % (35.3-44.9); Immature Granulocytes % 1.9 % (0-4); Lymphocytes % 4.6 %; Mean Corpuscular HGB Conc 31.8 g/dL (31.6-35.5); Mean Corpuscular Volume 97.6 fL (83.0-100.0); Mean Platelet Volume 10.1 fL (9.4-12.4); Monocytes # 1.2 K/mcL (0.0-1.3); Monocytes % 7.6 %; Neutrophils # 13.9 K/mcL (1.6-8.9); Nucleated Red Blood Cells 0.1 /100 WBC (0); Platelet Count 440 K/mcL (140-400); Red Cell Distribution Width 16.9 % (11.5-14.5); Segmented Neutrophils % 85.7 %
[2016-05-24 04:36] LABS: Lymphocytes # 0.8 K/mcL (0.6-4.6)
[2016-05-24 04:48] LABS: BUN/Creatinine Ratio 24 (6-26); Blood Urea Nitrogen 15 mg/dL (7-20); Calcium 8.6 mg/dL (8.6-10.8); Carbon Dioxide 23 mEq/L (19-29); Chloride 110 mEq/L (98-109); Glucose 103 mg/dL (70-99); Osmolality,Calculated 299 (280-300); Potassium 3.9 mEq/L (3.5-4.5); Sodium 144 mEq/L (136-145); eGFR For African Americans > 60 (> 60); eGFR For Non-African Americans > 60 (> 60)
[2016-05-24] MEDS: Levothyroxine 25 MCG TABLET PO SCH (06:55)
--- NOTE | 2016-05-24 09:14 | Internal Med Progress Note ---
Date of Encounter: 05/24/16 Time of Encounter: 09:05 - Assessment and plan (1) Pneumonia Current Visit: Yes Status: Acute Assessment and plan: May 19. Continue Rocephin and Zithromax with lactobacillus. May 20. Her leukocytosis and left shift have worsened. I will discontinue Rocephin and Zithromax and give her Levaquin and doxycycline. Chest CT will be done. Her ABG was acceptable yesterday. May 22. Continue IV Levaquin and doxycycline. Chest CT showed bilateral infiltrates. Requiring higher flow oxygen to maintain saturations. I note WBC higher today. May 23. Continue present regimen. Recheck labs in a.m. May 24. WBC has improved to 16.2. Continue present regimen Qualifiers: Pneumonia type: due to unspecified organism Laterality: left Lung location: lower lobe of lung Qualified Code(s): J18.9 - Pneumonia, unspecified organism (2) Elevated LFTs Current Visit: Yes Status: Acute Assessment and plan: May 19. Will recheck labs in a.m. May 21. LFTs were improved. Continue to monitor labs. May 22. Continue present management May 23. LFTs are further improved today. Continue present management (3) Anemia Current Visit: Yes Status: Acute Assessment and plan: May 19. We will recheck labs in a.m. May 20. Anemia testing is pending. May 21. Hemoglobin has declined further to 8.6 today. Will discontinue aspirin and Eliquis for now. Anemia testing showed no factor deficiency May 22. Hemoglobin slightly improved. Continue to hold aspirin and OAC. May 23. Hemoglobin minimally decreased to 8.6. Continue present management. May 24. Hemoglobin stable at 9.0. Qualifiers: Anemia type: unspecified type Qualified Code(s): D64.9 - Anemia, unspecified (4) Afib Current Visit: No Status: Chronic Assessment and plan: May 19. Continue Eliquis May 21. We will hold aspirin and Eliquis because of worsening anemia. Qualifiers: Atrial fibrillation type: unspecified Qualified Code(s): I48.91 - Unspecified atrial fibrillation - Subjective Interval history: May 19. She has no new complaints. She is lethargic but nods her head in answer to a few questions. May 20. She has no new complaints. She remains lethargic/obtunded. May 21. She states she feels "sick". She complains of nausea and dyspnea specifically. May 22. She is wearing nonrebreather oxygen mask and makes no attempt to speak May 23. She is lying in bed wearing oxygen and makes no attempt to speak. May 24. She is lying in bed wearing oxygen by mask. She makes no attempt to speak. She is groaning/moaning. - Constitutional Vitals: Temp Pulse Resp BP Pulse Ox 99.7 F H 74 20 151/76 88 L 05/24/16 07:14 05/24/16 07:14 05/24/16 07:14 05/24/16 07:14 05/24/16 07:14 Exam: Heart is regular without murmurs gallops or ectopics. She has scattered rhonchi throughout both lungs anteriorly. An IV is now on her left foot. She has trace edema of the left lower leg and trace to 1+ edema of the right lower leg. I reviewed her medications and lab results. Internal Medicine: Result - Labs CBC & Chem 7: 05/24/16 04:14 05/24/16 04:14 Labs: Short CBC 05/24/16 Range/Units 04:14 WBC 16.2 H (4.3-11.1) K/mcL Hgb 9.0 L (11.5-15.4) g/dL Hct 28.3 L (35.3-44.9) % Plt Count 440 H (140-400) K/mcL Neutrophils # 13.9 H (1.6-8.9) K/mcL BMP 05/24/16 04:14 Sodium 144 Potassium 3.9 Chloride 110 H Carbon Dioxide 23 BUN 15 Creatinine 0.62 Glucose 103 H Calcium 8.6 - ABG Interpretation ABG results: ABG ABG pH 7.46 pH Units (7.32-7.45) H 05/20/16 11:02 ABG pCO2 38 mmHg (35-45) 05/20/16 11:02 ABG pO2 66 mmHg (85-104) L 05/20/16 11:02 ABG O2 Saturation 94 % (95-98) L 05/20/16 11:02 PT/INR, D-dimer PT 18.0 Seconds (9.4-12.1) H 05/17/16 17:50 Consult Discharge Plan - Plan Referrals: Henri Thomas MD [Primary Care Provider] - 1 week
[2016-05-24] MEDS: Diltiazem CD (24hr) 180 MG CAPSULE PO SCH (09:51)
[2016-05-24] MEDS: Lactobacillus 1 EACH CAP.SPRINK PO SCH ×2 (09:52→22:11)
[2016-05-24] MEDS: Ascorbic Acid 500 MG TABLET PO SCH ×2 (09:53→22:12)
[2016-05-24] MEDS: Metoprolol XL (24 HR) Succ 50 MG TAB.ER.24H PO SCH (09:53)
[2016-05-24] MEDS: Cholecalciferol (D-3) 1,000 UNIT TABLET PO SCH (09:53)
[2016-05-24] MEDS ORDERED: Amiodarone Premix 150 MG/100 ML BAG IVPB SCH (11:00)
[2016-05-24] MEDS: Levofloxacin 500 MG/100 ML 500 MG/100 ML BAG IVPB SCH (11:01)
[2016-05-24] MEDS: Doxycycline 100 MG in 0.9 % Sodium Chloride 250 ML IVPB SCH ×2 (12:17→23:31)
[2016-05-24] MEDS: 0.45 % Sodium Chloride w/KCl 20 MEQ/1,000 ML MLS IVC SCH (17:38)
[2016-05-25] MEDS: *HR* Morphine 2 MG/ML SYRINGE IVP PRN ×10 (00:39→17:14)
[2016-05-25] MEDS: *HR* LORazepam 2 MG/ML VIAL IVP PRN ×6 (01:49→22:37)
[2016-05-25] MEDS ORDERED: Furosemide 20 MG/2 ML VIAL IVP ONE (03:15)
[2016-05-25] MEDS: Levothyroxine 25 MCG TABLET PO SCH (08:09)
[2016-05-25] MEDS: Diltiazem CD (24hr) 180 MG CAPSULE PO SCH (08:09)
[2016-05-25] MEDS: Lactobacillus 1 EACH CAP.SPRINK PO SCH (08:10)
[2016-05-25] MEDS: Metoprolol XL (24 HR) Succ 50 MG TAB.ER.24H PO SCH (08:13)
[2016-05-25] MEDS: Cholecalciferol (D-3) 1,000 UNIT TABLET PO SCH (08:14)
[2016-05-25] MEDS: Ascorbic Acid 500 MG TABLET PO SCH (08:14)
[2016-05-25 08:22] LABS: Basophils % 0.2 %; Hematocrit 29.1 % (35.3-44.9); Hemoglobin 8.9 g/dL (11.5-15.4); Immature Granulocytes % 1.6 % (0-4); Lymphocytes # 0.9 K/mcL (0.6-4.6); Lymphocytes % 4.1 %; Mean Corpuscular HGB Conc 30.6 g/dL (31.6-35.5); Mean Corpuscular Hemoglobin 30.7 pg (28.0-33.3); Mean Corpuscular Volume 100.3 fL (83.0-100.0); Mean Platelet Volume 10.2 fL (9.4-12.4); Monocytes # 1.2 K/mcL (0.0-1.3); Monocytes % 5.4 %; Neutrophils # 19.4 K/mcL (1.6-8.9); Nucleated Red Blood Cells 0.3 /100 WBC (0); Platelet Count 499 K/mcL (140-400); Red Cell Distribution Width 17.3 % (11.5-14.5); Segmented Neutrophils % 88.7 %
[2016-05-25] MEDS ORDERED: Furosemide 40 MG TABLET PO SCH (09:00)
--- NOTE | 2016-05-25 09:41 | Internal Med Progress Note ---
Date of Encounter: 05/25/16 Time of Encounter: 09:25 - Assessment and plan (1) Pneumonia Current Visit: Yes Status: Acute Assessment and plan: May 19. Continue Rocephin and Zithromax with lactobacillus. May 20. Her leukocytosis and left shift have worsened. I will discontinue Rocephin and Zithromax and give her Levaquin and doxycycline. Chest CT will be done. Her ABG was acceptable yesterday. May 22. Continue IV Levaquin and doxycycline. Chest CT showed bilateral infiltrates. Requiring higher flow oxygen to maintain saturations. I note WBC higher today. May 23. Continue present regimen. Recheck labs in a.m. May 24. WBC has improved to 16.2. Continue present regimen May 25. WBC has risen. She now has low-grade fever intermittently. Family has decided to do comfort measures only. I will withdraw antibiotics which I feel is reasonable Qualifiers: Pneumonia type: due to unspecified organism Laterality: left Lung location: lower lobe of lung Qualified Code(s): J18.9 - Pneumonia, unspecified organism (2) Elevated LFTs Current Visit: Yes Status: Acute Assessment and plan: May 19. Will recheck labs in a.m. May 21. LFTs were improved. Continue to monitor labs. May 22. Continue present management May 23. LFTs are further improved today. Continue present management May 25. Will not check labs further (3) Anemia Current Visit: Yes Status: Acute Qualifiers: Anemia type: unspecified type Qualified Code(s): D64.9 - Anemia, unspecified (4) Afib Current Visit: No Status: Chronic Assessment and plan: May 19. Continue Eliquis May 21. We will hold aspirin and Eliquis because of worsening anemia. May 25. Remain off aspirin/OAC. I will stop amiodarone since families decided on [employer] Qualifiers: Atrial fibrillation type: unspecified Qualified Code(s): I48.91 - Unspecified atrial fibrillation - Subjective Interval history: May 19. She has no new complaints. She is lethargic but nods her head in answer to a few questions. May 20. She has no new complaints. She remains lethargic/obtunded. May 21. She states she feels "sick". She complains of nausea and dyspnea specifically. May 22. She is wearing nonrebreather oxygen mask and makes no attempt to speak May 23. She is lying in bed wearing oxygen and makes no attempt to speak. May 24. She is lying in bed wearing oxygen by mask. She makes no attempt to speak. She is groaning/moaning. May 25. She is groaning/moaning as before. Does not respond to voice or light touch. - Constitutional Vitals: Temp Pulse Resp BP Pulse Ox 99.5 F 95 24 106/66 85 L 05/25/16 08:44 05/25/16 08:44 05/25/16 08:44 05/25/16 08:44 05/25/16 08:44 Exam: She is wearing oxygen by nonrebreather mask. Her lungs show scattered rhonchi. Heart tones are distant and difficult to hear. Extremities show 1-2+ edema bilaterally. Reviewed her medications and lab results with the family. Internal Medicine: Result - Labs CBC & Chem 7: 05/25/16 08:06 05/24/16 04:14 Labs: Short CBC 05/25/16 Range/Units 08:06 WBC 21.9 H (4.3-11.1) K/mcL Hgb 8.9 L (11.5-15.4) g/dL Hct 29.1 L (35.3-44.9) % Plt Count 499 H (140-400) K/mcL Neutrophils # 19.4 H (1.6-8.9) K/mcL - ABG Interpretation ABG results: ABG ABG pH 7.46 pH Units (7.32-7.45) H 05/20/16 11:02 ABG pCO2 38 mmHg (35-45) 05/20/16 11:02 ABG pO2 66 mmHg (85-104) L 05/20/16 11:02 ABG O2 Saturation 94 % (95-98) L 05/20/16 11:02 PT/INR, D-dimer PT 18.0 Seconds (9.4-12.1) H 05/17/16 17:50 Consult Discharge Plan - Plan Referrals: Henri Thomas MD [Primary Care Provider] - 1 week
[2016-05-25] MEDS: Acetaminophen 650 MG RECTAL SUPP RC PRN ×2 (14:49→22:03)
[2016-05-25] MEDS: *HR* Morphine 10 MG/ML VIAL IVP PRN ×5 (18:44→23:06)
[2016-05-26] MEDS: *HR* Morphine 10 MG/ML VIAL IVP PRN ×2 (00:10→01:14)
[2016-05-26] MEDS: *HR* LORazepam 2 MG/ML VIAL IVP PRN (00:39)
[2016-05-26] MEDS ORDERED: *HR* Morphine 30 MG/ 30 ML PCA IVC PRN (02:00)
[2016-05-26] MEDS ORDERED: *HR* Morphine 2 MG/ML SYRINGE ONE (02:14)
[2016-05-26] MEDS ORDERED: Morphine Oral CONC 5 MG/0.25 ML ORAL.SYG PO ONE (02:16)
[2016-05-26 02:41] VITALS: BP 61/34
--- NOTE | 2016-05-26 09:34 | Discharge Summary ---
Date of Encounter: 05/26/16 Time of Encounter: 09:30 - Discharge Diagnosis (1) Pneumonia Priority: Primary Status: Acute Qualifiers: Pneumonia type: due to unspecified organism Laterality: left Lung location: lower lobe of lung Qualified Code(s): J18.9 - Pneumonia, unspecified organism (2) Elevated LFTs Priority: Secondary Status: Acute (3) Anemia Priority: Secondary Status: Acute Qualifiers: Anemia type: unspecified type Qualified Code(s): D64.9 - Anemia, unspecified (4) Afib Priority: Secondary Status: Chronic Qualifiers: Atrial fibrillation type: unspecified Qualified Code(s): I48.91 - Unspecified atrial fibrillation - Discharge Medications Home Medications: Amiodarone [Cordarone] 200 mg PO BID 12/09/14 [History] Atorvastatin [Lipitor] 40 mg PO HS 12/09/14 [History] Duloxetine HCl [Cymbalta] 60 mg PO DAILY 12/09/14 [History] Pantoprazole Sodium [Protonix] 40 mg PO DAILY 12/09/14 [History] Amlodipine [Norvasc] 2.5 mg PO DAILY 01/16/15 [History] Apixaban [Eliquis] 5 mg PO BID 01/16/15 [History] Ascorbic Acid [Vitamin C] 500 mg PO BID 01/16/15 [History] Aspirin 81 mg PO DAILY 01/16/15 [History] Celecoxib [Celebrex] 200 mg PO DAILY 01/16/15 [History] Cetirizine HCl [Zyrtec] 10 mg PO DAILY 01/16/15 [History] Cholecalciferol (Vitamin D3) [Vitamin D3] 5,000 unit PO DAILY 01/16/15 [History] Cyanocobalamin (Vitamin B-12) [Vitamin B12] 1,000 mg PO DAILY 01/16/15 [History] Diltiazem CD (24hr) [Cardizem CD] 360 mg PO DAILY 01/16/15 [History] Docusate [Colace] 100 mg PO DAILY 01/16/15 [History] Ferrous Sulfate 325 mg PO DAILY 01/16/15 [History] Furosemide [Lasix] 20 mg PO DAILY 01/16/15 [History] Losartan [Cozaar] 50 mg PO BID 01/16/15 [History] Oxybutynin [Ditropan] 5 mg PO DAILY 01/16/15 [History] Potassium Chloride 20 meq PO DAILY 01/16/15 [History] Levothyroxine [Synthroid] 50 mcg PO DAILY 04/25/16 [History] Diazepam [Valium] 2 mg PO BID 04/26/16 [History] Metoprolol XL (24 HR) Succ [Toprol Xl] 100 mg PO DAILY 04/26/16 [History] Ondansetron ODT [Zofran ODT] 4 mg SL Q6HR PRN #15 tab.rapdis 04/29/16 [Rx] Doxycycline 100 mg PO BID 05/17/16 [History] Allergies/Adverse Reactions: Allergies ciprofloxacin [From Cipro] Allergy (Intermediate, Verified 11/20/15 07:35) Hives Sulfa (Sulfonamide Antibiotics) Allergy (Intermediate, Verified 11/20/15 07:35) Hives benazepril Allergy (Verified 11/20/15 07:35) See Comments trimethoprim Allergy (Verified 11/20/15 07:35) Rash Date of admission: 05/18/16 18:34 Primary care physician: Henri Thomas MD Consults: 05/19/16 10:42 dietary consult [Consult to Nutrition] [CONS] Routine Comment: Consulting Provider: NUTRITION Reason for Dietary Consult: Supplemental Nutrition - Patient Status Disposition: - Discharge Instructions Hospital course: Ms. Henry is a 80 year old female who was sent to emergency room after the alf after staff reported she had altered mental status. Evaluation showed probable left basilar pneumonia. She was admitted to [facility] floor for ongoing care needs. Initial orders were written by the emergency room physician. I saw her on May 18 and performed the history and physical. She was started on Rocephin and Zithromax. I added lactobacillus. On May 20 she had no significant clinical improvement and her leukocytosis with left shift worsened. I changed her to Levaquin and doxycycline. A chest CT was ordered which showed bilateral infiltrates. She had no significant improvement to the change in antibiotics. I suspect that she had a viral pneumonia. Discussed her status and prognosis several times with family over the next few days. On May 25 they decided to proceed with comfort measures only. Antibiotics and IV fluids were withdrawn. She was given morphine and Ativan for comfort. She continued to decline and was found without pulse or respirations at 0234 on May 26 and was pronounced . Her body was released to the home. - Time Spent with Patient Total time spent providing and/or coordinating discharge services: - Constitutional Vitals: Temp Pulse Resp BP Pulse Ox 101.5 F H 95 22 61/34 67 L 05/26/16 01:33 05/26/16 01:33 05/26/16 01:33 05/26/16 01:33 05/26/16 01:33
== END 2016-05-26 02:34 | disposition expired | DRG 190 ==
LOC: EMEROOPIK 17:27 → INPPIK 17:27
PROVIDERS: ADMIT Internal Medicine; ATTEND Internal Medicine